=== PATIENT | male | born 1945 | race Caucasian/White ===

== ENCOUNTER → 2017-06-15 | Outpatient (CLI) | payer MEDICARE ==
--- NOTE | 2017-06-15 14:21 | XR ---
EXAMINATION TYPE: XR chest 2V DATE OF EXAM: 06/15/2017 COMPARISON: NONE HISTORY: Congestive heart failure, COPD TECHNIQUE: Frontal and lateral views of the chest are obtained. FINDINGS: There is no focal air space opacity, pleural effusion, or pneumothorax seen. The cardiac silhouette size is possibly enlarged, patient is rotated. There are prominent lung volumes. Postop c hanges in the right shoulder. Flowing anterior osteophytes in the thoracic spine suggest diffuse hepa tic skeletal hyperostosis. Possible degenerative disc disease in the upper lumbar spine. Arthropathy noted in the left shoulder. The osseous structures are intact. IMPRESSION: No acute cardiopulmonary process.
== END | disposition home or self-care (01) ==
LOC: RADXRMAIN 09:38
PROVIDERS: ATTEND Internal Medicine Cardiovascular Disease
DX: I50.9 Heart failure, unspecified (principal)
CPT/HCPCS: 36415; 71046; 83880

== ENCOUNTER → 2017-11-04 | Outpatient (CLI) | payer MEDICARE ==
[2017-11-04 10:47] LABS: Blood Urea Nitrogen 19 mg/dL (9-20)
== END | disposition home or self-care (01) ==
LOC: LABWHC1 10:06
PROVIDERS: ATTEND Orthopaedic Surgery
DX: M25.512 Pain in left shoulder (principal); M19.012 Primary osteoarthritis, left shoulder; M50.10 Cervical disc disorder with radiculopathy, unspecified cervical region; M47.22 Other spondylosis with radiculopathy, cervical region
CPT/HCPCS: 36415; 82565; 84520

== ENCOUNTER → 2017-12-07 | Outpatient (CLI) | payer MEDICARE ==
[2017-12-07 13:09] LABS: HCT 37.9 % (39.0-53.0); HGB 12.6 gm/dL (13.0-17.5); MCH 31.2 pg (25.0-35.0); MCHC 33.3 g/dL (31.0-37.0); MCV 93.5 fL (80.0-100.0); Mean Platelet Volume 7.6; Platelet Count 175 k/uL (150-450); RBC 4.05 m/uL (4.30-5.90); RDW 13.7 % (11.5-15.5); WBC 4.8 k/uL (3.8-10.6)
[2017-12-07 14:10] LABS: ALT 55 U/L (21-72); AST 78 U/L (17-59); Albumin 3.6 g/dL (3.5-5.0); Alkaline Phosphatase 96 U/L (38-126); Anion Gap 9 mmol/L; Blood Urea Nitrogen 26 mg/dL (9-20); Calcium 9.2 mg/dL (8.4-10.2); Carbon Dioxide 29 mmol/L (22-30); Chloride 101 mmol/L (98-107); Glucose 104 mg/dL (74-99); Potassium 3.8 mmol/L (3.5-5.1); Sodium 139 mmol/L (137-145); Total Bilirubin 0.6 mg/dL (0.2-1.3); Total Protein 6.9 g/dL (6.3-8.2)
== END | disposition home or self-care (01) ==
LOC: LABWHC1 12:39
PROVIDERS: ATTEND Thoracic Surgery (Cardiothoracic Vascular Surgery)
DX: E63.8 Other specified nutritional deficiencies (principal)
CPT/HCPCS: 36415; 80053; 84134; 85027

== ENCOUNTER → 2017-12-15 | Outpatient (CLI) | payer MEDICARE | END | disposition home or self-care (01) | LOC: RADUSWWP 13:24 | PROVIDERS: ATTEND Thoracic Surgery (Cardiothoracic Vascular Surgery) | DX: M79.604 Pain in right leg (principal); M79.605 Pain in left leg | CPT/HCPCS: 93923 ==

== ENCOUNTER → 2017-12-17 | Outpatient (CLI) | payer MEDICARE ==
--- NOTE | 2017-12-17 15:11 | NM ---
EXAMINATION TYPE: NM bone 3 phase DATE OF EXAM: 12/17/2017 COMPARISON: Right toes 12/14/2017 HISTORY: Osteomyelitis Triple phase bone scintigraphy was performed following the injection of 26.0 mCi Tc 99m MDP. Immedia te images and 5.25 hours post injection images acquired. FINDINGS: Increased blood flow and blood pool activity to the right lower extremity as compared to the left. De layed imaging shows increased uptake at the level of the proximal third digit of the right foot. Midf oot shows activity bilaterally. IMPRESSION: Findings suggest osteomyelitis to the third digit right foot
== END | disposition home or self-care (01) ==
LOC: RADNMMAIN 07:14
PROVIDERS: ATTEND Thoracic Surgery (Cardiothoracic Vascular Surgery)
DX: E11.69 Type 2 diabetes mellitus with other specified complication (principal); M86.8X8 Other osteomyelitis, other site
CPT/HCPCS: 78315; A9503

== ENCOUNTER → 2018-01-12 | Outpatient (CLI) | payer MEDICARE ==
--- NOTE | 2018-01-12 23:49 | MR ---
EXAMINATION TYPE: MR foot RT wo/w con DATE OF EXAM: 01/12/2018 COMPARISON: None HISTORY: Pain in Right foot,L89.90 Pressure Ulcer, 2nd and 3rd toe CONTRAST: Standard multiplanar, multisequence MRI departmental protocol utilizing 12 mL intravenous Gadavist ga dolinium contrast. FINDINGS: There is diffuse edema of the foot. This is more noticeable in the forefoot. There is edema around the ankle joint. There is hallux valgus. The metatarsals appear intact. There is a small effu rachid at the first MP joint. There is hypertrophic spurring at the first MP joint. There is no evidenc e of an abscess. IMPRESSION: Diffuse subcutaneous edema. This extends into the toes. No focal bone destruction. Mild hallux valgus . No abscess seen.
== END | disposition home or self-care (01) ==
LOC: RADMRIMAIN 07:29
PROVIDERS: ATTEND Orthopaedic Surgery
DX: M20.11 Hallux valgus (acquired), right foot (principal); R60.0 Localized edema; G57.91 Unspecified mononeuropathy of right lower limb
CPT/HCPCS: 73720; A9581

== ENCOUNTER → 2018-01-21 | Outpatient (CLI) | payer MEDICARE ==
--- NOTE | 2018-01-22 22:41 | MR ---
EXAMINATION TYPE: MR cervical spine wo/w con DATE OF EXAM: 01/21/2018 COMPARISON: None HISTORY: Neck pain TECHNIQUE: Multiplanar, multisequence images of the cervical spine were acquired utilizing 12 mL intravenous Vinny avist gadolinium contrast. Diffusion weighted imaging was performed. C2-C3: Posterior extension of endplate disc complex contacts the anterior cervical cord and causes mo derate central canal stenosis. Lateral extension endplate disc complex results in foraminal encroachm ent greater on the left, there is associated facet arthropathy greater than right. C3-4: There is severe central canal stenosis due to posterior extension of endplate disc complex, lat eral extension endplate disc complex causes bilateral foraminal encroachment. There is deformity the cervical cord. C4-C5: Foraminal encroachment or central stenosis. No disc herniation there is obliteration of the di sc space due to diffusion. C5-C6: Posterior extension of endplate causes mild anterior mass effect on the thecal sac, obliterati on of the space, lateral extension of spurring does cause some foraminal encroachment bilaterally. C6-C7: Posterior extension of endplate disc complex causes anterior mass effect on the thecal sac, mi ld central canal stenosis. Lateral extension of endplate disc complex causes bilateral foraminal encr oachment. C7-T1: There is left-sided foraminal encroachment. No significant central stenosis. No disc herniatio n. There is multilevel spondylosis present with loss of disc height signal, anterior cervical fusion and discectomy present at C4-C6. Endplate discogenic marrow signal changes are noted. Epidural enhancem ent is present which is possibly postsurgical. IMPRESSION: Spinal stenosis greatest at C3-4, multilevel foraminal encroachment, degenerative disc disease.
== END | disposition home or self-care (01) ==
LOC: RADMRIMAIN 16:15
PROVIDERS: ATTEND Orthopaedic Surgery
DX: M48.02 Spinal stenosis, cervical region (principal); M50.10 Cervical disc disorder with radiculopathy, unspecified cervical region; E11.9 Type 2 diabetes mellitus without complications; M19.012 Primary osteoarthritis, left shoulder
CPT/HCPCS: 72156; A9581

== ENCOUNTER → 2018-03-01 | Outpatient (CLI) | payer MEDICARE ==
--- NOTE | 2018-03-01 13:43 | XR ---
EXAMINATION TYPE: XR chest 2V DATE OF EXAM: 03/01/2018 COMPARISON: Prior chest x-ray 06/15/2017 HISTORY: COPD, preop TECHNIQUE: Frontal and lateral views of the chest are obtained. FINDINGS: There is no focal air space opacity, pleural effusion, or pneumothorax seen. The cardiac silhouette size is stable. Anterior flowing osteophytes in the thoracic spine may be indicative of di ffuse idiopathic skeletal hyperostosis. There are prominent lung volumes. Postop change noted to the right shoulder. The osseous structures are intact. IMPRESSION: No acute cardiopulmonary process.
== END | disposition home or self-care (01) ==
LOC: RADXRMAIN 10:15
PROVIDERS: ATTEND Orthopaedic Surgery Orthopaedic Surgery of the Spine
DX: Z01.818 Encounter for other preprocedural examination (principal)
CPT/HCPCS: 71046

== ENCOUNTER 2018-03-09 07:30 | Inpatient (IN) | payer MEDICARE ==
[~2018-03-09 07:30] MED LIST: MORPHINE SULFATE 4 MG/ML SYRINGE IV PRN; ceFAZolin IN SWFI 2 GM/20 ML SYRINGE IVP ONE
[2018-03-09] MEDS ORDERED: LIDOCAINE 1% 20 ML VIAL (10MG/ML) FOR IV START INTRADERMA ONE (09:09)
[2018-03-09] MEDS: LACTATED RINGERS 1,000 ML IV SCH ×2 (09:09→19:54)
[2018-03-09] MEDS ORDERED: ONDANSETRON 4 MG/2 ML VIAL ONE (09:26)
[2018-03-09] MEDS ORDERED: ONDANSETRON 4 MG/2 ML VIAL IVP ONE (09:27)
[2018-03-09] MEDS ORDERED: PROPOFOL 10 MG/ML 20 ML VIAL IV ONE (11:14)
[2018-03-09] MEDS ORDERED: ePHEDrine SULFATE/0.9% NACL/PF 50 MG/5 ML SYRINGE IV ONE (11:14)
[2018-03-09] MEDS ORDERED: DEXAMETHASONE SOD PHOS (MDV) 100 MG/10 ML VIAL ONE (11:14)
[2018-03-09] MEDS ORDERED: NEOSTIGMINE 1 MG/ML 10 ML VIAL ONE (11:14)
[2018-03-09] MEDS ORDERED: ROCURONIUM BROMIDE 10 MG/ML 10 ML VIAL IV ONE (11:14)
[2018-03-09] MEDS ORDERED: MIDAZOLAM 2 MG/2 ML VIAL ONE (11:14)
[2018-03-09] MEDS ORDERED: GLYCOPYRROLATE 0.2 MG/ML 2 ML VIAL ONE (11:14)
[2018-03-09] MEDS ORDERED: GELATIN SPONGE,ABSORB (LARGE) 1 EACH SPONGE TOPICAL ONE (11:14)
[2018-03-09] MEDS ORDERED: THROMBIN (BOVINE) 5,000 UNIT VIAL TOPICAL ONE (11:14)
[2018-03-09] MEDS ORDERED: SUCCINYLCHOLINE CHLORIDE 100 MG/5 ML SYR IV ONE (11:14)
[2018-03-09] MEDS ORDERED: LIDOCAINE 0.5%-EPI 1:200,000 50 ML VIAL SQ ONE (11:14)
[2018-03-09] MEDS ORDERED: LIDOCAINE 1% INJ 10MG/ML (20 ML MDV) ONE (11:14)
[2018-03-09] MEDS ORDERED: LABETALOL 5 MG/ML VIAL MDV ONE (11:14)
[2018-03-09] MEDS ORDERED: fentaNYL (PF) 50 MCG/ML 2 ML AMP ONE (11:14)
[2018-03-09] MEDS ORDERED: BACITRACIN 50,000 UNIT, POLYMYXIN B 500,000 UNIT in SODIUM CHLORIDE 0.9% IRRIGATIO 1,00... IRRIGATION ONE (11:30)
[2018-03-09] MEDS ORDERED: LACTATED RINGERS 1,000 ML IV ONE (12:58)
[2018-03-09] MEDS ORDERED: MAGNESIUM HYDROXIDE 2,400 MG/10 ML CUP PO PRN (13:45)
[2018-03-09] MEDS ORDERED: HYDROmorphone 1 MG/ML 1 ML SYRINGE IVP PRN ×2 (13:45)
[2018-03-09] MEDS ORDERED: HYDROcodone/APAP 5-325MG 1 EACH TAB PO PRN (13:45)
[2018-03-09] MEDS ORDERED: BENZOCAINE/MENTHOL LOZENG 1 EACH LOZENGE MUCOUS MEM PRN (13:45)
[2018-03-09] MEDS ORDERED: ONDANSETRON 4 MG/2 ML VIAL IVP PRN (13:45)
[2018-03-09] MEDS ORDERED: ALBUTEROL NEBULIZED 2.5 MG/3 ML INHALATION PRN (13:46)
[2018-03-09] MEDS ORDERED: ACETAMINOPHEN TAB 325 MG TAB PO PRN (13:46)
--- NOTE | 2018-03-09 13:55 | XR ---
EXAMINATION TYPE: XR cervical spine limited DATE OF EXAM: 03/09/2018 COMPARISON: NONE HISTORY: Surgical procedure TECHNIQUE: 2 intraoperative view submitted FINDINGS: There is postsurgical change at C3-C4. Alignment near-anatomic. Resolution reduced by intra operative image. IMPRESSION: Limited intraoperative surgical image.
--- NOTE | 2018-03-09 14:01 | P.OP ---
Date of Procedure: 03/09/18 Preoperative Diagnosis: Cervical myelopathy, severe cervical stenosis C3 4, degenerative disc disease C3 4 and C6 7, history of prior anterior cervical discectomy and fusion with retained hardware C4 5 C5 6, upper extremity weakness Postoperative Diagnosis: Same with findings of solid autofusion at C6 7 and solid fusion C4 5 C5 6 Anesthesia: GETA Pathology: none sent Condition: stable Disposition: PACU Description of Procedure: BRIEF OPERATIVE NOTE Preoperative Diagnosis: Cervical myelopathy, severe cervical stenosis C3 4, degenerative disc disease C3 4 and C6 7, history of prior anterior cervical discectomy and fusion with retained hardware C4 5 C5 6, upper extremity weakness Postoperative Diagnosis: Same with findings of solid anterior cervical fusion at C4 5 C5 6 and findings of solid autofusion at C6 7 with mature bridging osteophyte bone formation Procedure: Removal of hardware C4 5 C5 6 Exploration of fusion C4 5 C5 6 with findings of solid fusion Exploration of C6 7 with findings of autofusion and mature anterior bridging osteophyte formation Anterior cervical decompression with discectomy and fusion C3 4 Placement of interbody graft At C3 4 Application of anterior cervical plate at C3 4 Surgeon: Dr. Jack Vacuum Conditioner Operator: Piero Noriega is present throughout the entire the case persistence during positioning, dissection, exposure, visualization, and all crucial elements of the case as well as closure. Anesthesia: General anesthesia Estimated blood loss: approximately 50 mL Complications: None apparent Components implanted: K2M Boss anterior cervical plate system with screws and Vikos interbody allograft bone graft with DBX bone putty Disposition: To recovery room in good stable condition. OPERATIVE INDICATIONS The patient has had long-standing issues in their neck and upper extremities. he is having worsening of his symptoms and evidence of myelopathy at his upper and lower extremities. His found have severe cervical stenosis C3 4 which correlated with his early myelopathy symptoms. He had a history of prior anterior cervical discectomy and fusion approximately 13 years ago at C4 5 and C5 6 which had gone on to do well over the past several years however developed worsening symptoms which was felt to stem primarily from the C3 4 severe stenosis but also potentially from the disc degeneration and disc bulging at C6 7. The patient has been through conservative treatment. he was having worsening symptoms and evidence of myelopathy despite conservative management. We discussed various treatment options including surgery, and the patient wishes to proceed with surgery We discussed the risk, patient's alternatives and benefits of surgery including but not limited to, risk of bleeding risk of infection, risk of need for further surgery, risk of decreased, loss of motion, muscle function, malunion nonunion, hardware failure, nerve damage, paralysis, heart attack, and . OPERATIVE SUMMARY After discussing all the risks, patient alternatives and benefits at length, the patient elected to proceed with surgical intervention, signed informed consent, and presented for their procedure. The patient was seen and examined in the preoperative holding area and the surgical site was marked. The patient was given antibiotics and brought to the operating room. The patient was positioned on the operating room table in a supine position being careful to pad any bony prominences and pressure points. The patient was sedated and intubated by anesthesia in standard fashion. Once the airway and C- spine were stabilized the patient's arms were padded and tucked at her side, with her shoulders gently taped. The head was placed in a donut pad with the neck in good neutral alignment and position. We were careful to maintain the patient's cervical spine and good neutral alignment and position throughout. The patient was prepped and draped in a normal standard fashion. An appropriate timeout and keystone protocol performed. We were able to proceed with the surgery. The local wound area was infiltrated with local anesthetic. An incision was mlongitudinally approximately 4 cm on the left side over the appropriate levels from C3 to C7, as the patient has had prior transverse incision on the right side for his prior surgery . Dissection was taken down subcutaneously to the level of the platysma which was split in line with its fibers. Dissection was taken with a carotid approach, with the trachea and esophagus medial and the carotid sheath laterally. We dissected down to the anterior surface of the vertebral bodies. I was able to easily palpate and find the anterior cervical plate at C4 to 6 and expose the appropriate hardware. The construct appeared to be stable. There is some bony overgrowth at both see 34 and at C6 7. There is very large mature osteophyte at C6 7. I was able expose the screw heads at the plate. I used the appropriate screwdriver to unlock the locking device and then remove the screws 6 appropriately. Screws were evaluated found to be in total. The plate was mobilized and removed and found to be in total. The area was explored and there was excellent interbody fusion at C45 and C5 6 for findings of solid fusion C5 6. I'll further explored the level at C6 7. There is no evidence of motion at C6 7. There is a large mature osteophyte anteriorly at C6 7 with no evidence of any motion or disruption. It appeared to bridge Mendez at C6 7 and I felt that the level was solidly fused. I further reviewed the MRI as a had prior to surgery and I felt that the patient will be well served with repeating the autofusion intact at C6 7 rather than taking down the autofusion and opening up the space further where there was disc bulging. I felt that his symptoms worsen primarily from the 34 level and I did not pursue further decompression at C6 7 at the time of the surgery. Intraoperative x-ray was taken which showed a marker at the appropriate level above the plate at C3 4 . With the appropriate level positively confirmed with C-arm after taking the plate, we were able to proceed with discectomy at the appropriate levels of C3 4 . All of the operative levels were exposed appropriately. The patient had all their twitches back, and there was no evidence of recurrent laryngeal issue. The wound was copiously irrigated and suctioned dry as had been done periodically throughout the case. At the appropriate level/levels, I established an annulotomy with an 11 blade scalpel. there was severe disc degeneration and complete disc height loss. A discectomy was performed with a combination of pituitary rongeurs, curettes, a high-speed bur, and Kerrison rongeurs. The posterior longitudinal ligament was taken down as were any posterior osteophytes. there was severe posterior osteophytes and severe central and bilateral foraminal stenosis. The decompression was able to remedy this quite well central and bilateral neural foramen. This gave good central and bilateral foraminal decompression. There is no evidence of any dural tear or leak. The endplates were prepared with a high-speed bur. With the endplates in good parallel position, I was able to size for the appropriate size interbody graft. The wound was irrigated and suctioned dry the graft was prepared and malleted into position. It had good alignment and position with the anterior surface flush with the anterior surface of the vertebral bodies. with the autofusion at C6 7 I felt that was appropriate to leave the autofusion intact rather to then to take down the autofusion to dress the bulging at the C6 7 disc. With the graft intact, I was able to measure and contour and appropriate sized plate for C3 4 . The plate was positioned at the midline over the appropriate levels for C3 4 . Screw holes were established with a hand drill and drill guide. Screws were placed in good alignment and position with excellent bony purchase. eye had to place the plate slightly left of midline to accommodate and avoid the prior screw holes. It was well positioned with excellent purchase at the vertebral bodies They were seated under the locking device. The construct was checked and found to be stable. Intraoperative x-ray was taken which showed good alignment and position of the implants at the appropriate levels. There was no evidence of any dural tear or leak. Good hemostasis was maintained. The wound was copiously irrigated and suctioned dry as had been done periodically throughout the case. The platysma was closed with absorbable suture. The subcutaneous tissue was closed. The subcuticular tissue was closed with absorbable suture. The wound was cleaned and dried and dressed appropriately. A soft cervical collar was placed appropriately. The patient was woken up by anesthesia, extubated, transferred back gently to their hospital bed and brought to the recovery room in good stable condition. The patient will be admitted to the hospital for appropriate postoperative care , medical management and monitoring. We will continue to follow them closely about the postoperative course.
--- NOTE | 2018-03-09 14:12 | FL ---
EXAMINATION TYPE: FL guidance operating room DATE OF EXAM: 03/09/2018 HISTORY: Flouroscopy time 10 seconds of fluoroscopy provided. IMPRESSION: 1. Fluoroscopy time.
[2018-03-09] MEDS ORDERED: METOPROLOL TARTRATE 5 MG/5 ML VIAL IVP ONE (14:30)
[2018-03-09] MEDS: IPRATROPIUM-ALBUTEROL 3 ML NEB INHALATION SCH ×2 (15:15→18:37)
[2018-03-09 15:32] VITALS: BMI 32.0
[2018-03-09] MEDS ORDERED: LORazepam 2 MG/ML INJ IV PRN ×3 (19:39)
[2018-03-09] MEDS: SODIUM CHLORIDE 0.9% 1,000 ML IV SCH (19:54)
[2018-03-09] MEDS: APIXABAN 5 MG TAB PO SCH (19:55)
[2018-03-09] MEDS: ceFAZolin IN SWFI 2 GM/20 ML SYRINGE IVP SCH (19:55)
[2018-03-09] MEDS ORDERED: MECLIZINE 25 MG TAB PO STA (19:55)
[2018-03-09] MEDS ORDERED: PANTOPRAZOLE 40 MG TABLET PO STA (19:55)
[2018-03-09] MEDS ORDERED: QUEtiapine 50 MG TAB PO SCH (21:00)
[2018-03-09] MEDS ORDERED: NON-FORMULARY DRUG (Fish Oil/Dha/Epa [Fish Oil 1,200 Mg Fish Oil] 1 EACH) PO SCH (21:00)
[2018-03-09] MEDS ORDERED: ATORVASTATIN 20 MG TAB PO SCH (21:00)
[2018-03-09 23:00] VITALS: RESP 18
[2018-03-10] MEDS ORDERED: METOPROLOL TARTRATE 25 MG TAB PO STA
[2018-03-10] MEDS ORDERED: DILTIAZEM DRIP BOLUS FROM BAG 1 MG SOLN IV ONE (00:39)
[2018-03-10 00:47] LABS: Creatine Kinase 70 U/L (55-170)
[2018-03-10 01:00] LABS: Creatine Kinase MB 1.8 ng/mL (0.0-2.4); Troponin I <0.012 ng/mL (0.000-0.034)
[2018-03-10] MEDS: DILTIAZEM 50 MG in SODIUM CHLORIDE 0.9% 40 ML IV SCH ×2 (01:25→09:23)
[2018-03-10] MEDS: ceFAZolin IN SWFI 2 GM/20 ML SYRINGE IVP SCH (02:16)
[2018-03-10 07:15] LABS: Creatine Kinase 65 U/L (55-170)
[2018-03-10 07:26] LABS: Creatine Kinase MB 1.8 ng/mL (0.0-2.4); Troponin I <0.012 ng/mL (0.000-0.034)
--- NOTE | 2018-03-10 07:29 | P.CONS ---
History of Present Illness - Reason for Consult Consult date: 03/10/18 Requesting physician: Matt Jack - Chief Complaint Cervical myelopathy - History of Present Illness This is a 72-year-old white male who was essentially admitted for cervical myelopathy and repair. The patient has an underlying history of atrial fibrillation. I was called yesterday evening after postoperative increased heart rate. EKG showed atrial flutter with ST elevation. The patient was then transferred to [facility] and now is seen at that point. The patient's fairly asymptomatic but there is some concern because of history of ethanol use. He claims about 16 drinks per week. No history of delirium tremens stated. No significant nausea or vomiting. No fever or chills are stated. Blood pressure has been stable. Cardiology has been appropriately consulted. Review of Systems Constitutional: Denies chills, Denies fever Eyes: denies blurred vision, denies pain Ears, nose, mouth and throat: Denies headache, Denies sore throat Cardiovascular: Denies chest pain, Denies shortness of breath Respiratory: Denies cough Musculoskeletal: Denies myalgias Neurological: Denies numbness, Denies weakness Past Medical History Past Medical History: Atrial Fibrillation, Cancer, Heart Failure, COPD, Deep Vein Thrombosis (DVT), GERD/Reflux, Hyperlipidemia, Hypertension Additional Past Medical History / Comment(s): prostate cancer,rt.ft. wound, neuropathy to feet History of Any Multi-Drug Resistant Organisms: None Reported Year Discovered:: 12/14/17 MDRO Source:: TOE Past Surgical History: Hernia Repair, Joint Replacement, Prostate Surgery Additional Past Surgical History / Comment(s): neck surgery, RT HAND PLATE SURGERY, BILATERAL KNEE SURGERY, RT SHOULDER SURGERY Past Anesthesia/Blood Transfusion Reactions: No Reported Reaction Smoking Status: Former smoker - Past Family History Mother Family Medical History: Blood Disorder Father Family Medical History: Dementia Medications and Allergies Home Medications Medication Instructions Recorded Confirmed Type Albuterol Inhaler [Ventolin Hfa 1 - 2 puff INHALATION RT-Q6H PRN 09/27/17 History Inhaler] Bisoprolol Fumarate [Zebeta] 10 mg PO DAILY 09/27/17 03/09/18 History Cholecalciferol [Vitamin D3] 1,000 units PO DAILY 09/27/17 03/09/18 History Fish Oil/Dha/Epa [Fish Oil 1,200 1 cap PO BID 09/27/17 03/09/18 History mg Fish Oil] Furosemide [Lasix] 40 mg PO DAILY 09/27/17 03/09/18 History Ipratropium/Albuterol Sulfate 2 puff INHALATION RT-QID 09/27/17 03/09/18 History [Combivent Respimat Inhaler] LORazepam [Ativan] 0.5 mg PO BID PRN 09/27/17 03/09/18 History Multivitamin [Men's Multi-Vitamin] 1 tab PO DAILY 09/27/17 03/09/18 History Omeprazole [PriLOSEC] 20 mg PO AC-BRKFST 09/27/17 03/09/18 History Potassium Chloride [K-Tab ER] 10 meq PO DAILY 09/27/17 03/09/18 History QUEtiapine [SEROquel] 50 mg PO HS 09/27/17 03/09/18 History RX: Meclizine HCl 25 mg PO DAILY PRN 09/27/17 03/09/18 History RX: Meloxicam 15 mg PO DAILY 09/27/17 03/09/18 History RX: Vitamin B Complex 1 cap PO DAILY 09/27/17 03/09/18 History Sertraline [Zoloft] 200 mg PO DAILY 09/27/17 03/09/18 History Simvastatin [Zocor] 40 mg PO HS 09/27/17 03/09/18 History Acetaminophen [Tylenol Arthritis] 650 mg PO DIRECTED PRN 12/07/17 03/09/18 History Apixaban [Eliquis] 5 mg PO BID 12/07/17 03/09/18 History Aspirin EC [Ecotrin Low Dose] 81 mg PO DAILY 12/07/17 03/09/18 History Hydrochlorothiazide [Hydrodiuril] 25 mg PO DAILY 12/07/17 03/09/18 History Allergies Allergy/AdvReac Type Severity Reaction Status Date / Time No Known Allergies Allergy Verified 03/09/18 15:59 Physical Exam Vitals: Vital Signs Temp Pulse Pulse Resp BP Pulse Ox 03/10/18 04:00 72 03/10/18 03:09 65 03/10/18 02:00 90 18 131/78 96 03/10/18 01:45 100 124/67 96 03/10/18 01:36 86 120/75 03/10/18 01:00 97.0 F L 102 H 18 132/78 96 03/09/18 23:30 126 H 03/09/18 23:13 97.8 F 126/90 03/09/18 22:58 125 H 18 95 03/09/18 22:20 110 H 95 03/09/18 19:20 99.2 F 105 H 14 142/94 97 03/09/18 18:49 90 16 03/09/18 18:37 91 16 03/09/18 16:45 100 144/90 92 L 03/09/18 16:30 92 158/108 92 L 03/09/18 16:15 86 149/92 93 L 03/09/18 16:00 100 154/94 92 L 03/09/18 15:45 101 H 146/93 90 L 03/09/18 15:30 97 144/100 91 L 03/09/18 15:25 89 16 03/09/18 15:24 98.2 F 94 16 149/88 91 L 03/09/18 15:16 94 16 03/09/18 15:15 87 156/108 95 03/09/18 15:00 98.2 F 94 149/88 91 L 03/09/18 14:47 64 16 143/80 94 L 03/09/18 14:32 75 16 167/90 94 L 03/09/18 14:17 68 16 169/79 95 03/09/18 14:02 98 F 96 16 170/80 94 L 03/09/18 08:28 98.6 F 80 18 140/74 93 L Intake and Output 03/09/18 03/10/18 03/10/18 22:59 06:59 14:59 Intake Total 800 658.583 Output Total 300 900 Balance 500 -241.417 Intake: Intake, IV Titration 600 658.583 Amount Diltiazem 50 mg In Sodium 8.583 Chloride 0.9% 40 ml @ 10 MG/HR 10 mls/hr IV .Q5H NIHARIKA Rx#:[id number] Sodium Chloride 0.9% 1, 600 650 000 ml @ 75 mls/hr IV . [id number] NIHARIKA Rx#:[id number] Oral 200 Output: Urine 300 900 Other: # Voids 1 2 Weight 116.12 kg 116.8 kg - Constitutional General appearance: no acute distress - EENT Eyes: EOMI - Neck Neck: no lymphadenopathy - Respiratory Respiratory: bilateral: CTA - Cardiovascular Rhythm: regular Heart sounds: normal: S1, S2 Abnormal Heart Sounds: no S3 Gallop - Gastrointestinal General gastrointestinal: soft, no tenderness - Neurologic Slight hand tremor noted. Neurologic: CNII-XII intact - Musculoskeletal Musculoskeletal: strength equal bilaterally - Psychiatric Psychiatric: A&O x's 3, appropriate affect, intact judgment & insight Assessment and Plan (1) Cervical myelopathy Current Visit: Yes Status: Acute Code(s): G95.9 - DISEASE OF SPINAL CORD, UNSPECIFIED SNOMED Code(s): 052500611 (2) Atrial fibrillation Current Visit: Yes Status: Acute Code(s): I48.91 - UNSPECIFIED ATRIAL FIBRILLATION SNOMED Code(s): 00081502 Plan: Enzymatic elevation is not seen. Obviously, rule out myocardial infraction. Reconcile home medications as necessary. The patient has been placed on diltiazem per cardiology. The patient seems stable at this time. Continue CIWA. We appreciate consultation will follow throughout the hospitalization as needed. Time with Patient: Greater than 30
[2018-03-10] MEDS ORDERED: PANTOPRAZOLE 40 MG TABLET PO SCH (07:30)
[2018-03-10] MEDS: IPRATROPIUM-ALBUTEROL 3 ML NEB INHALATION SCH ×2 (08:13→11:49)
[2018-03-10 08:53] LABS: HGB 14.4 gm/dL (13.0-17.5); Hypochromasia Slight; MCH 30.2 pg (25.0-35.0); MCV 94.4 fL (80.0-100.0); Mean Platelet Volume 8.1; Platelet Count 192 k/uL (150-450); RBC 4.76 m/uL (4.30-5.90); RDW 14.2 % (11.5-15.5); WBC 6.6 k/uL (3.8-10.6)
--- NOTE | 2018-03-10 08:56 | P.DS ---
Providers Date of admission: 03/09/18 08:03 Attending physician: Matt Jack Consults: 03/09/18 23:16 Consult Physician Urgent Consulting Provider: Khai Jenkins Reason/Comments: Increased Heart Rate/CIWAH scale/Medical Management Do you want consulting provider notified?: Already Contacted 03/09/18 23:48 Consult Physician Stat Consulting Provider: Ana Santoro Consult Reason/Comments: abnormal ecg Do you want consulting provider notified?: Yes Primary care physician: Khai Jenkins Hospital Course: The patient presented on the day of admission as per his operative note. He has cervical myelopathy and severe stenosis at C3 4 with history of spinal fusion C4 5 C5 6 with retained hardware. He also disc degeneration and disc bulging C6 7. He underwent his anterior cervical decompression with discectomy and fusion C3 4 with removal of his hardware at C4 5 and C5 6 yesterday. He feels his arms not gone since his surgery as it had been doing prior to surgery. Yesterday he felt that he was getting somewhat anxious and was having some increased blood pressure and was transferred to [address] [place] [address] further observation as per medicine. He denies any chest pain or shortness of breath. Physical Exam The incision site is clean dry and intact. There is no erythema no drainage. There is no purulence no evidence of infection. his neck is soft and supple Abdomen soft and nontender. Chest has good excursion with deep inspiration and expiration. The patient has active and passive range of motion intact at the upper and lower extremities. There is no acute change in neurologic status. he has some generalized weakness at his upper extremities worse on the left than the right but is not having worsening from his surgery. Hospital Course Postoperative day #1 status was anterior cervical decompression with discectomy and fusion at C34 with removal of hardware C4 5 C5 6 for his severe cervical stenosis with cervical myelopathy Acute atrial fibrillation without evidence of cardiac event The patient's troponin enzymes have been negative and he is not having any cardiac issues and his vital signs remained stable. He does not appear to be in any acute coronary incident and will be okay for him to be monitored outpatient if it is okay with medicine. In terms of his cervical spine surgery he feels that he is doing well. They have completed the prophylactic antibiotics without any signs or symptoms of infection. The patient has been able to advance their diet, and is tolerating diet adequately. The pain was initially controlled with IV medications and is now controlled appropriately with oral medications. The patient has been able to increase their mobilization. The patient has progressed appropriately. I think they are in good stable condition for discharge today from an orthopedic spine standpoint . They will be sent home with appropriate prescriptions. I answered their questions to the best of my ability in a language that they can understand and they are agreeable with the plan. the patient states that he has pain medications at home that he can use. They will follow up as directed in approximately 1-2 weeks or sooner if he is having any problems. Patient Condition at Discharge: Good Plan - Discharge Summary Discharge Rx Participant: Yes New Discharge Prescriptions: No Action Simvastatin [Zocor] 40 mg PO HS QUEtiapine [SEROquel] 50 mg PO HS Albuterol Inhaler [Ventolin Hfa Inhaler] 1 - 2 puff INHALATION RT-Q6H PRN PRN Reason: Shortness Of Breath Sertraline [Zoloft] 200 mg PO DAILY Ipratropium/Albuterol Sulfate [Combivent Respimat Inhaler] 2 puff INHALATION RT-QID Omeprazole [PriLOSEC] 20 mg PO AC-BRKFST Furosemide [Lasix] 40 mg PO DAILY LORazepam [Ativan] 0.5 mg PO BID PRN PRN Reason: Anxiety Vitamin B Complex 1 cap PO DAILY Potassium Chloride [K-Tab ER] 10 meq PO DAILY Multivitamin [Men's Multi-Vitamin] 1 tab PO DAILY Meloxicam 15 mg PO DAILY Meclizine HCl 25 mg PO DAILY PRN PRN Reason: Vertigo Fish Oil/Dha/Epa [Fish Oil 1,200 mg Fish Oil] 1 cap PO BID Cholecalciferol [Vitamin D3] 1,000 units PO DAILY Bisoprolol Fumarate [Zebeta] 10 mg PO DAILY Acetaminophen [Tylenol Arthritis] 650 mg PO DIRECTED PRN PRN Reason: Pain Control Hydrochlorothiazide [Hydrodiuril] 25 mg PO DAILY Aspirin EC [Ecotrin Low Dose] 81 mg PO DAILY Apixaban [Eliquis] 5 mg PO BID Discharge Medication List Albuterol Inhaler [Ventolin Hfa Inhaler] 1 - 2 puff INHALATION RT-Q6H PRN [History] Bisoprolol Fumarate [Zebeta] 10 mg PO DAILY 09/27/17 [History] Cholecalciferol [Vitamin D3] 1,000 units PO DAILY 09/27/17 [History] Fish Oil/Dha/Epa [Fish Oil 1,200 mg Fish Oil] 1 cap PO BID 09/27/17 [History] Furosemide [Lasix] 40 mg PO DAILY 09/27/17 [History] Ipratropium/Albuterol Sulfate [Combivent Respimat Inhaler] 2 puff INHALATION RT- QID 09/27/17 [History] LORazepam [Ativan] 0.5 mg PO BID PRN 09/27/17 [History] Meclizine HCl 25 mg PO DAILY PRN 09/27/17 [History] Meloxicam 15 mg PO DAILY 09/27/17 [History] Multivitamin [Men's Multi-Vitamin] 1 tab PO DAILY 09/27/17 [History] Omeprazole [PriLOSEC] 20 mg PO AC-BRKFST 09/27/17 [History] Potassium Chloride [K-Tab ER] 10 meq PO DAILY 09/27/17 [History] QUEtiapine [SEROquel] 50 mg PO HS 09/27/17 [History] Sertraline [Zoloft] 200 mg PO DAILY 09/27/17 [History] Simvastatin [Zocor] 40 mg PO HS 09/27/17 [History] Vitamin B Complex 1 cap PO DAILY 09/27/17 [History] Acetaminophen [Tylenol Arthritis] 650 mg PO DIRECTED PRN 12/07/17 [History] Apixaban [Eliquis] 5 mg PO BID 12/07/17 [History] Aspirin EC [Ecotrin Low Dose] 81 mg PO DAILY 12/07/17 [History] Hydrochlorothiazide [Hydrodiuril] 25 mg PO DAILY 12/07/17 [History] Follow up Appointment(s)/Referral(s): Matt Jack DO [Doctor of Osteopathic Medicine] - 2 Weeks (construction secretary or nurse to please call office to arrange for appointment) Activity/Diet/Wound Care/Special Instructions: Patient's home medications were taken to inpatient pharmacy. Patient has home pain medications already at home to be taken as needed for his pain as directed. Avoid any rigorous activity. Avoid heavy activity. No overhead activity. May wear soft collar for comfort. May ambulate to tolerance. No repetitive bending twisting or lifting. Keep wound site clean. May shower with waterproof Tegaderm intact. On Wednesday, the patient may shower with area uncovered, but leave Steri-Strips intact and allow them to fray off on their own. Do not soak in a tub. Discharge Disposition: HOME SELF-CARE
[2018-03-10 08:57] LABS: ALT 27 U/L (21-72); AST 26 U/L (17-59); Albumin 3.7 g/dL (3.5-5.0); Alkaline Phosphatase 67 U/L (38-126); Anion Gap 7 mmol/L; Blood Urea Nitrogen 20 mg/dL (9-20); Carbon Dioxide 30 mmol/L (22-30); Chloride 102 mmol/L (98-107); Glucose 123 mg/dL (74-99); Sodium 139 mmol/L (137-145); Total Bilirubin 0.8 mg/dL (0.2-1.3); Total Protein 7.3 g/dL (6.3-8.2)
[2018-03-10] MEDS ORDERED: FUROSEMIDE 40 MG TAB PO SCH (09:00)
[2018-03-10] MEDS ORDERED: ASPIRIN 81 MG PO SCH (09:00)
[2018-03-10] MEDS ORDERED: NON-FORMULARY DRUG (Vitamin B Complex [Vitamin B Complex] 1 EACH) PO SCH (09:00)
[2018-03-10] MEDS ORDERED: MECLIZINE 25 MG TAB PO SCH (09:00)
[2018-03-10] MEDS ORDERED: BISOPROLOL 5 MG TAB PO SCH (09:00)
[2018-03-10] MEDS ORDERED: POTASSIUM CHLORIDE ER 10 MEQ TAB.ER.PRT PO SCH (09:00)
[2018-03-10] MEDS ORDERED: HYDROCHLOROTHIAZIDE 25 MG TAB PO SCH (09:00)
[2018-03-10] MEDS ORDERED: SERTRALINE 100 MG TAB PO SCH (09:00)
[2018-03-10] MEDS ORDERED: CHOLECALCIFEROL 1,000 UNIT TAB PO SCH (09:00)
[2018-03-10] MEDS: SODIUM CHLORIDE 0.9% 1,000 ML IV SCH (09:22)
[2018-03-10] MEDS: APIXABAN 5 MG TAB PO SCH (09:29)
--- NOTE | 2018-03-10 10:02 | CONS ---
CONSULTATION CHIEF COMPLAINT: Atrial fibrillation. Mr. Manzanares is a 72-year-old gentleman with history of paroxysmal atrial fibrillation, hypertension and dyslipidemia who was admitted to the hospital for cervical spine surgery and in the perioperative setting went into atrial flutter with poorly controlled ventricular rate. He was in atrial fibrillation with controlled ventricular rate in the office. At the time of my evaluation this morning, he is free of any cardiac symptoms. Remains in A. fib with poorly controlled ventricular rate. He had an echocardiogram and I was told that the LV systolic function is normal. The patient denies chest pain, difficulty in breathing, palpitations, dizziness, syncope or focal neurological deficits. PAST MEDICAL HISTORY: Past medical history is significant for dyslipidemia, atrial fibrillation, hypertension. CURRENT MEDICATIONS: Current medications include Zocor, Zoloft, Seroquel, K-Dur, Prilosec, meclizine, Combivent, HydroDIURIL, Lasix, bisoprolol, aspirin, Eliquis, Ventolin. ALLERGIES: No known drug allergies. FAMILY HISTORY: Family history is negative for premature coronary artery disease. SOCIAL HISTORY: He denies current smoking. Has a history of ETOH abuse. There is no history of drug abuse. PHYSICAL EXAMINATION: On exam, patient is comfortable at rest. Vital signs are stable. There is no jugular venous distention. Heart rate is elevated. Chest exam reveals good air entry bilaterally. Heart exam reveals first and second heart sounds, irregular rhythm. No murmur. Abdomen is soft, nontender. Examination of the extremities did not reveal any edema. Peripheral pulses are felt. EKGs have been reviewed. Labs show a hemoglobin of 14.4. Creatinine is 0.6. Two sets of troponins are negative. ASSESSMENT: 1. Atrial fibrillation with poorly controlled ventricular rate. The patient has chronic atrial fibrillation. He is on an anticoagulant. Heart rate is poorly controlled. I am going to resume the bisoprolol that the patient was on at home. 2. Status post cervical spine surgery. PLAN: Once the heart rate is controlled, he can be discharged home and outpatient followup arranged with Dr. Santoro, his primary timekeeper. MMODL / IJN: [id number] /
[2018-03-10 11:25] VITALS: TEMP 98.7
[2018-03-10] MEDS ORDERED: MULTIVITAMINS, THERA 1 EACH TAB PO SCH (12:00)
[2018-03-10] MEDS ORDERED: DILTIAZEM ORAL 30 MG TAB PO SCH (12:15)
[2018-03-10 13:01] LABS: Creatine Kinase 71 U/L (55-170)
[2018-03-10 13:14] LABS: Creatine Kinase MB 1.8 ng/mL (0.0-2.4); Troponin I <0.012 ng/mL (0.000-0.034)
[2018-03-10 15:57] VITALS: BP 126/79; PULSE 106
--- NOTE | 2018-03-10 17:39 | ECHOF ---
Referral Reason:abnormal ECG MEASUREMENTS -------- HEIGHT: 185.4 cm WEIGHT: 116.6 kg BP: 131/78 RVIDd: 3.6 cm (< 3.3) IVSd: 1.6 cm (0.6 - 1.1) LVIDd: 3.6 cm (3.9 - 5.3) LVPWd: 1.8 cm (0.6 - 1.1) IVSs: 2.1 cm LVIDs: 2.0 cm LVPWs: 1.6 cm Ao Diam: 3.9 cm (2.0 - 3.7) AV Cusp: 1.6 cm (1.5 - 2.6) LA Diam: 3.2 cm (2.7 - 3.8) RAP: 5.00 mmHg RVSP: 12.42 mmHg FINDINGS -------- Atrial fibrillation. This was a technically difficult study with suboptimal views. The left ventricular size is normal. There is severe concentric left ventricular hypertrophy. Ove rall left ventricular systolic function is low-normal with, an EF between 50 - 55 %. The right ventricle is mild to moderately enlarged. The left atrium is normal in size. The right atrium is normal in size. Lumason used Aortic valve is trileaflet and is mildly thickened. The mitral valve leaflets are mildly thickened. Mild mitral regurgitation is present. Mild tricuspid regurgitation present. The right ventricular systolic pressure, as measured by Doppl er, is 12.42mmHg. Pulmonic valve appears structurally normal. The aortic root is dilated measuring 3.9. The pericardium is normal. CONCLUSIONS -------- 1. Atrial fibrillation. 2. This was a technically difficult study with suboptimal views. 3. The left ventricular size is normal. 4. There is severe concentric left ventricular hypertrophy. 5. Overall left ventricular systolic function is low-normal with, an EF between 50 - 55 %. 6. The right ventricle is mild to moderately enlarged. 7. The left atrium is normal in size. 8. The right atrium is normal in size. 9. Lumason used 10. Aortic valve is trileaflet and is mildly thickened. 11. The mitral valve leaflets are mildly thickened. 12. Mild mitral regurgitation is present. 13. Mild tricuspid regurgitation present. 14. The right ventricular systolic pressure, as measured by Doppler, is 12.42mmHg. 15. Pulmonic valve appears structurally normal. 16. The aortic root is dilated measuring 3.9 17. The pericardium is normal. RACECAR DRIVER: Wendy Gee RDCS
== END 2018-03-10 15:43 | disposition home or self-care (01) | DRG 472 ==
LOC: 2ORMAIN 08:03 → 3SUR 14:02 → 6SEL 03-10 01:30
PROVIDERS: ADMIT Orthopaedic Surgery Orthopaedic Surgery of the Spine; ATTEND Orthopaedic Surgery Orthopaedic Surgery of the Spine
PROC: 0RG10A0 Fusion of Cervical Vertebral Joint with Interbody Fusion Device, Anterior Approach, Anterior Column, Open Approach (ICD-10-PCS; 2018-03-09)
PROC: 0RB30ZZ Excision of Cervical Vertebral Disc, Open Approach (ICD-10-PCS; 2018-03-09)
PROC: 0WP Anatomical Regions, General, Removal (ICD-10-PCS; principal; 2018-03-09 11:15)
DX: M48.02 Spinal stenosis, cervical region (principal); M50.021 Cervical disc disorder at C4-C5 level with myelopathy; Z18.89 Other specified retained foreign body fragments; E78.5 Hyperlipidemia, unspecified; I11.0 Hypertensive heart disease with heart failure; I48.0 Paroxysmal atrial fibrillation; I48.2 Chronic atrial fibrillation; I50.9 Heart failure, unspecified; J44.9 Chronic obstructive pulmonary disease, unspecified; K21.9 Gastro-esophageal reflux disease without esophagitis; M25.78 Osteophyte, vertebrae; Z79.01 Long term (current) use of anticoagulants; Z79.899 Other long term (current) drug therapy; Z85.46 Personal history of malignant neoplasm of prostate; Z87.891 Personal history of nicotine dependence; Z98.1 Arthrodesis status
CPT/HCPCS: 72020; 72040; 80053; 82550; 82553; 84484; 85027; 93005; 93306; 94640

== ENCOUNTER → 2018-09-24 | Outpatient (CLI) | payer OTHER ==
--- NOTE | 2018-09-24 13:35 | MR ---
EXAMINATION TYPE: MR brain and iac wo/w con DATE OF EXAM: 09/24/2018 COMPARISON: None HISTORY: Ataxia / Vertigo / Hearing loss TECHNIQUE: Multiplanar, multisequence images of the brain and brainstem with small [id number] and high resolu tion images through the internal auditory canals is performed without and with IV contrast, utilizing 13 mL intravenous Gadavist . FINDINGS: Diffusion weighted images demonstrate no evidence of a recent infarct or other diffusion ab normality. There is no extra-axial fluid collection. Increased signal on T2-weighted images within the luan, periventricular and deep white matter may be related to chronic small vessel ischemia. The ventricular system and cisternal spaces are normal in size and appearance. The brain volume is age a ppropriate. Midline structures demonstrate normal morphology. Internal auditory canals, cerebellopontine angles a re normal. Cortical atrophy is likely age-related. The craniocervical junction appears within normal limits. Post contrast images demonstrate no abnormal enhancement. The dural venous sinuses appear pa tent. The visualized sinuses are remarkable for mucoperiosteal thickening within the ethmoid air cell s, maxillary sinus, minimal inflammatory change mastoid air cells, and the globes are intact. IMPRESSION: No abnormality evident in the cerebellopontine angles. Age-related changes. Mild sinus di sease, mastoid inflammatory change.
== END | disposition home or self-care (01) ==
LOC: RADMRIMAIN 09:18
PROVIDERS: ATTEND Psychiatry & Neurology Neurology
DX: D33.3 Benign neoplasm of cranial nerves (principal); H74.8X9 Other specified disorders of middle ear and mastoid, unspecified ear; R27.0 Ataxia, unspecified
CPT/HCPCS: 70553; A9585

== ENCOUNTER → 2019-01-07 | Outpatient (CLI) | payer MEDICARE ==
--- NOTE | 2019-01-07 14:25 | MR ---
EXAMINATION TYPE: MR foot LT wo con DATE OF EXAM: 01/07/2019 COMPARISON: None HISTORY: pain osteomyelitis Standard multiplanar, multisequence MRI departmental protocol Multiplanar, multisequence images of the right foot were acquired. FINDINGS: Exam limited due to motion artifact. Assessment the musculature and tendinous structures extremely li mited. There is arthropathy with the joint space narrowing of all DIP, PIP and first MTP joint. Hypertrophic change involving the head of the first metatarsal. There is diffuse soft tissue edema overlying the dorsum of foot with skin thickening. There is no abnormal marrow alteration to suggest osteomyelitis. Chronic appearing signal seen along the lateral margin of the cuboid. There is be chronic deformity i nvolving the proximal phalanx first digit. IMPRESSION: 1. Limited exam due to artifact demonstrates diffuse soft tissue edema and skin thickening compatibl e with diffuse cellulitis. No diagnostic evidence of marrow edema to suggest osteomyelitis. 2. Arthropathy.
== END | disposition home or self-care (01) ==
LOC: RADMRIMAIN 12:35
PROVIDERS: ATTEND Orthopaedic Surgery
DX: M79.89 Other specified soft tissue disorders (principal); M19.072 Primary osteoarthritis, left ankle and foot; E11.69 Type 2 diabetes mellitus with other specified complication; M86.9 Osteomyelitis, unspecified; L97.509 Non-pressure chronic ulcer of other part of unspecified foot with unspecified severity

== ENCOUNTER 2019-02-02 08:29 | Day surgery (SDC) | payer MEDICARE ==
[~2019-02-02 08:29] MED LIST changes: -MORPHINE SULFATE 4 MG/ML SYRINGE IV PRN; +Pre Op ABX Message 1 EACH MISC MISCELLANE ONE; +ceFAZolin 3 GM in SODIUM CHLORIDE 0.9% 100 ML IVPB ONE; -ceFAZolin IN SWFI 2 GM/20 ML SYRINGE IVP ONE
[2019-02-02] MEDS ORDERED: DEXAMETHASONE SOD PHOSPHATE 10 MG/ML 1 ML VIAL IV ONE (08:40)
[2019-02-02] MEDS ORDERED: LIDOCAINE 1% 20 ML VIAL (10MG/ML) FOR IV START INTRADERMA PRN (08:40)
[2019-02-02] MEDS ORDERED: HYDROmorphone 0.5 MG/0.5 ML SYRINGE IVP PRN (08:40)
[2019-02-02] MEDS ORDERED: LACTATED RINGERS 1,000 ML IV SCH (08:40)
[2019-02-02] MEDS ORDERED: ONDANSETRON 4 MG/2 ML VIAL IVP ONE (08:40)
[2019-02-02 09:34] LABS: Glucose,Whole Blood 133 mg/dL (75-99)
[2019-02-02] MEDS ORDERED: fentaNYL (PF) 50 MCG/ML 2 ML AMP ONE (09:42)
[2019-02-02] MEDS ORDERED: LIDOCAINE 1% INJ 10MG/ML (20 ML MDV) ONE (09:42)
[2019-02-02] MEDS ORDERED: PROPOFOL 10 MG/ML 20 ML VIAL IV ONE (09:42)
[2019-02-02] MEDS ORDERED: MIDAZOLAM 2 MG/2 ML VIAL ONE (09:42)
[2019-02-02] MEDS ORDERED: SUCCINYLCHOLINE CHLORIDE 100 MG/5 ML SYR IV ONE (09:42)
[2019-02-02 10:48] VITALS: RESP 18; TEMP 97.1
[2019-02-02 12:13] VITALS: PULSE 80
[2019-02-02] MEDS ORDERED: HYDROcodone/APAP 5-325MG 1 EACH TAB PO ONE (12:40)
[2019-02-02 12:42] VITALS: BP 155/91
--- NOTE | 2019-02-02 14:21 | P.OP ---
Date of Procedure: 02/02/19 Preoperative Diagnosis: 1. Recurrent ulcer under the plantar aspect of the left hallux proximal phalanx 2. Prior Maged osteotomy left proximal phalanx, hallux 3. 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 Left EHL tendon tenotomy 2. Left first MTP capsulotomy 3. Left hallux proximal phalanx exostectomy Anesthesia: GETA Surgeon: Tani Camilo Estimated Blood Loss (ml): 10 IV fluids (ml): 750 Pathology: none sent Condition: stable Disposition: PACU Indications for Procedure: The patient is a 73-year-old male with multiple medical problems including type 2 diabetes and peripheral neuropathy who is had amputations and wound healing problems of both of his feet. He is a current patient of the wound Center. He was referred to my office in the past for which I performed an amputation on his right foot and he did well. He was again transferred for nonhealing wound on the plantar aspect of the left big toe. I met with the patient to discuss treatment. His x-rays showed a prior Maged osteotomy that had been performed by a grain weigher. He had an extension deformity of the big toe putting pressure on the callus under the plantar aspect of the left hallux. X-rays showed diffuse degenerative changes and a prior osteotomy the proximal phalanx. An MRI was obtained to show no evidence of osteomyelitis. We discussed continued nonsurgical treatment versus surgery. The patient was sent over for evaluation of a first MTP fusion, but due to the patient's very poor soft tissue envelope, diabetes, history of infection, history of amputation, and other medical comorbidities I did not think daily a good candidate for an elective fusion. My recommendation was to perform a release of the contracted soft tissues dorsally and remove any bone plantarly that may be leading to the area of prominence. We discussed potential risks and complications of this including but not limited to risk of infection, damage to blood vessels or nerves, recurrence, need for further surgery including amputation. The patient voiced his understanding of this and provided his consent to go forward with surgery. Description of Procedure: The patient was identified in preoperative holding and the correct left foot was marked with my initials. I reviewed the consent form with the patient and his daughter in their questions were answered. The patient was then brought back to the operating room by anesthesia. He was positioned on the OR table where a general anesthetic was given. The left leg was prepped and draped in the standard sterile fashion. A tourniquet was applied proximal aspect the left leg. The left leg was then elevated, exsanguinated with an Esmarch bandage, and the tourniquet was inflated to 250 mmHg. Prior to starting the procedure a timeout was performed identifying the correct patient, operative extremity, and procedure. A medial incision was made along the midline of the hallux centered between the glabrous skin and the dorsal skin. Skin incision was made with a scalpel dissection was carried down carefully. Tissue with tenotomy scissors. The EHL and EHB tendon were identified and found to be contracted. They were sharply released with a scalpel. This significantly improved the extension deformity at the MP joint. To allow additional correction a capsulotomy of the dorsal portion the joint was performed. This also decreased the deformity at the MTP joint. Dissection was then carried down plantarly. A small amount of bone was found to be prominent under the plantar aspect of the proximal phalanx which was removed with a curet and Luis Carlos. The wound was then thoroughly irrigated and closed in layers. A sterile dressing was applied. The patient was awoken from his anesthetic, transferred to a gurney, and brought to recovery having tolerated the procedure well. Plan: The patient is going to be discharged home as an outpatient. He can weight-bear as tolerated in the boot. Wound care can commence starting on postoperative day #2 with daily dressing changes. He will follow-up in 1 week for a wound check. He is currently on Eliquis and aspirin and has no further need for DVT prophylaxis
== END 2019-02-02 13:30 | disposition home or self-care (01) ==
LOC: OR 08:29
PROVIDERS: ATTEND Orthopaedic Surgery
DX: E11.621 Type 2 diabetes mellitus with foot ulcer (principal); L97.529 Non-pressure chronic ulcer of other part of left foot with unspecified severity; E11.42 Type 2 diabetes mellitus with diabetic polyneuropathy; Z89.421 Acquired absence of other right toe(s); F32.9 Major depressive disorder, single episode, unspecified; I11.0 Hypertensive heart disease with heart failure; I50.9 Heart failure, unspecified; E78.5 Hyperlipidemia, unspecified; K21.9 Gastro-esophageal reflux disease without esophagitis; R42 Dizziness and giddiness; M20.5X2 Other deformities of toe(s) (acquired), left foot; Z86.718 Personal history of other venous thrombosis and embolism; J44.9 Chronic obstructive pulmonary disease, unspecified; J30.2 Other seasonal allergic rhinitis; Z85.46 Personal history of malignant neoplasm of prostate; F43.10 Post-traumatic stress disorder, unspecified; R26.89 Other abnormalities of gait and mobility; I48.91 Unspecified atrial fibrillation; Z87.891 Personal history of nicotine dependence; K30 Functional dyspepsia; Z79.01 Long term (current) use of anticoagulants; Z79.1 Long term (current) use of non-steroidal anti-inflammatories (NSAID); Z79.82 Long term (current) use of aspirin; Z79.899 Other long term (current) drug therapy
CPT/HCPCS: 28270; J2250; J1100; J0690; J2405; J2001; J3010; J0330; J2704

== ENCOUNTER → 2019-05-30 | Outpatient (CLI) | payer OTHER | END | disposition home or self-care (01) | LOC: CPPFTMAIN 10:12 | DX: J98.4 Other disorders of lung (principal); J84.89 Other specified interstitial pulmonary diseases | CPT/HCPCS: 94060; 94726; 94729 ==

== ENCOUNTER 2019-06-22 06:07 | Day surgery (SDC) | payer MEDICARE, OTHER ==
[2019-06-20 10:52] VITALS: BMI 34.9
[~2019-06-22 06:07] MED LIST changes: +DEXAMETHASONE SOD PHOSPHATE 10 MG/ML 1 ML VIAL IV ONE; +HYDROmorphone 0.5 MG/0.5 ML SYRINGE IVP PRN; +LACTATED RINGERS 1,000 ML IV SCH; +LIDOCAINE 1% 20 ML VIAL (10MG/ML) FOR IV START INTRADERMA PRN; +MIDAZOLAM 2 MG/2 ML VIAL IV PRN; +ONDANSETRON 4 MG/2 ML VIAL IVP ONE; -Pre Op ABX Message 1 EACH MISC MISCELLANE ONE; +SCOPOLAMINE 1.5MG/72HR PATCH TRANSDERM ONE
[2019-06-22 07:03] VITALS: TEMP 97.2
[2019-06-22 07:06] LABS: Glucose,Whole Blood 126 mg/dL (75-99)
[2019-06-22] MEDS ORDERED: KETAMINE 10 MG/ML 20 ML VIAL ONE (07:26)
[2019-06-22] MEDS ORDERED: MIDAZOLAM 2 MG/2 ML VIAL ONE (07:26)
[2019-06-22] MEDS ORDERED: fentaNYL (PF) 50 MCG/ML 2 ML AMP ONE (07:26)
[2019-06-22] MEDS ORDERED: BUPIVACAINE (PF) 0.25% 30 ML VIAL SQ ONE (07:30)
--- NOTE | 2019-06-22 08:24 | P.OP ---
Date of Procedure: 06/22/19 Preoperative Diagnosis: 1. Nonhealing ulcer distal aspect 4th right toe Postoperative Diagnosis: same Procedure(s) Performed: Partial right 4th toe amputation Anesthesia: local, other (Sedation) Surgeon: Tani Camilo Law Examiner #1: Kellie Vincent Estimated Blood Loss (ml): 2 IV fluids (ml): 500 Pathology: other (distal toe sent to pathology) Condition: stable Disposition: PACU Indications for Procedure: The patient is a 73-year-old male with multiple medical problems with a long- standing history of problems with both of his feet. He came to see me with a nonhealing open wound and callus over the distal aspect of the right fourth toe. We discussed nonsurgical and surgical treatment. We decided to perform an amputation of the toe. We discussed potential risks and complications which the patient is well aware of having previously undergone surgery. He provided his consent to go forward with surgery. Description of Procedure: The patient is nontender operative holding the correct right foot and fourth toes marked my initials. I reviewed the consent form with the patient and his sister. All their questions were answered. The patient was brought back to the operating room. He was positioned on the OR table where a sedation was given by anesthesia. The right leg was prepped and draped in sterile fashion after a tourniquet was applied the proximal aspect of the right leg. All bony prominences well-padded. A timeout was performed identifying the correct patient, operative extremity, and procedure. The patient's leg was then elevated, exsanguinated with an Esmarch bandage, and the tourniquet was inflated to 250 mmHg. Next I began by outlining fishmouth type incisions over the base of the fourth toe. A digital block was performed using quarter percent Marcaine without epinephrine prior to making incision. Skin incision with a scalpel and dissection was carried down with a knife through the flexor and extensor tendons down to bone. The toes disarticulated at the PIP joint handed off to be sent to pathology. The proximal phalanx was cut in its midshaft and the cut ends were contoured. The wound was thoroughly irrigated and closed in layers. A sterile dressing was applied. The tourniquet was let down. They were taken off. The patient was brought to recovery having tolerated the procedure well.
[2019-06-22 09:55] VITALS: BP 131/73; PULSE 85; RESP 20
== END 2019-06-22 10:19 | disposition home or self-care (01) ==
LOC: OR 06:07
PROVIDERS: ATTEND Orthopaedic Surgery
DX: E11.621 Type 2 diabetes mellitus with foot ulcer (principal); L97.519 Non-pressure chronic ulcer of other part of right foot with unspecified severity; I48.91 Unspecified atrial fibrillation; I10 Essential (primary) hypertension; E78.5 Hyperlipidemia, unspecified; J44.9 Chronic obstructive pulmonary disease, unspecified; Z87.891 Personal history of nicotine dependence; K21.9 Gastro-esophageal reflux disease without esophagitis; E11.42 Type 2 diabetes mellitus with diabetic polyneuropathy; Z79.899 Other long term (current) drug therapy; Z79.01 Long term (current) use of anticoagulants; Z79.82 Long term (current) use of aspirin; F32.9 Major depressive disorder, single episode, unspecified; J30.2 Other seasonal allergic rhinitis; Z85.46 Personal history of malignant neoplasm of prostate; Z98.890 Other specified postprocedural states; M86.8X7 Other osteomyelitis, ankle and foot; F43.10 Post-traumatic stress disorder, unspecified
CPT/HCPCS: 88305; 88311; 28825; J2250; J1100; J0690; J2405; J3010

== ENCOUNTER 2022-10-21 09:06 | Day surgery (SDC) | payer MEDICARE, OTHER ==
[2022-10-19 14:30] VITALS: BMI 32.5
[~2022-10-21 09:06] MED LIST changes: -DEXAMETHASONE SOD PHOSPHATE 10 MG/ML 1 ML VIAL IV ONE; -HYDROmorphone 0.5 MG/0.5 ML SYRINGE IVP PRN; -LIDOCAINE 1% 20 ML VIAL (10MG/ML) FOR IV START INTRADERMA PRN; -MIDAZOLAM 2 MG/2 ML VIAL IV PRN; -ONDANSETRON 4 MG/2 ML VIAL IVP ONE; -SCOPOLAMINE 1.5MG/72HR PATCH TRANSDERM ONE; -ceFAZolin 3 GM in SODIUM CHLORIDE 0.9% 100 ML IVPB ONE
[2022-10-21 09:34] VITALS: RESP 16; TEMP 97.9
[2022-10-21] MEDS ORDERED: LACTATED RINGERS 1,000 ML IV ONE (10:00)
[2022-10-21 10:06] LABS: Glucose,Whole Blood 248 mg/dL (70-110)
[2022-10-21] MEDS ORDERED: PROPOFOL 10 MG/ML 20 ML VIAL IV ONE (10:39)
--- NOTE | 2022-10-21 11:08 | P.PCN ---
Date of Procedure: 10/21/22 Procedure(s) Performed: Brief history: Patient is a pleasant 76-year-old pleasant white male scheduled for an elective upper endoscopy as well as colonoscopy as a part of evaluation of evaluation of GERD and prior history of colon polyps. His last EGD and colonoscopy was 5 years ago Procedure performed: Esophagogastroduodenoscopy with biopsy Colonoscopy Preoperative diagnosis: GERD History of colon polyps Anesthesia: MAC Procedure: After informed consent was obtained from the patient was brought into the endoscopy unit and IV sedation was administered by anesthesia under continuous monitoring. Initially upper endoscopy was done. The Olympus GF 160 video endoscope was inserted inserted into the mouth and esophagus intubated without any difficulty and was gradually advanced into the stomach and duodenum and carefully examined. The bulb and second part of the duodenum appeared normal. The scope was then withdrawn into the stomach adequately insufflated with air and upon careful examination the antrum and body, cardia and fundus appeared normal. The scope was then withdrawn into the esophagus. Hiatal hernia noted. The GE junction was located at 40 cm to the incisors. There was a 5 mm tongue of Mcguire's appearing mucosa just proximal to the GE junction which was biopsie d.. Rest of the esophagus appeared normal. Patient tolerated the procedure well. At this time the patient continued to remain sedation. Initial digital rectal examination was normal. Olympus CF 160 video colonoscope was then inserted into the rectum and gradually advanced to the cecum without any difficulty. Careful examination was performed as the scope was gradually being withdrawn. The prep was good. The cecum, ascending colon, transverse colon, descending colon, sigmoid colon and rectum appeared normal. At her sigmoid diverticulosis. Retroflexion was performed in the rectum and no lesions were noted. Patient tolerated the procedure well. Impression: 1. 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 Colonoscopy revealed scattered sigmoid diverticulosis but no evidence of colorectal neoplasia Recommendations: Findings of this examination were discussed with the patient as well as his family. He was advised to follow with the biopsy results. If the biopsy confirms Mcguire's esophagus he can have a repeat upper endoscopy in 3 years. The meantime he'll continue with omeprazole 20 mg daily and follow antireflux measures.
[2022-10-21 11:54] VITALS: PULSE 85
[2022-10-21] MEDS ORDERED: ENALAPRILAT 1.25 MG/ML 1 ML VIAL IVP ONE (11:55)
[2022-10-21 12:11] VITALS: BP 166/87
== END 2022-10-21 12:19 | disposition home or self-care (01) ==
LOC: ORWHC2ENDO 09:06
PROVIDERS: ATTEND Internal Medicine Gastroenterology
DX: Z12.11 Encounter for screening for malignant neoplasm of colon (principal); K31.A0 Gastric intestinal metaplasia, unspecified; K22.70 Barrett's esophagus without dysplasia; K57.30 Diverticulosis of large intestine without perforation or abscess without bleeding; K21.9 Gastro-esophageal reflux disease without esophagitis; K44.9 Diaphragmatic hernia without obstruction or gangrene; I11.0 Hypertensive heart disease with heart failure; I50.9 Heart failure, unspecified; E78.5 Hyperlipidemia, unspecified; J44.9 Chronic obstructive pulmonary disease, unspecified; Z86.010 Personal history of colon polyps; Z98.890 Other specified postprocedural states; Z79.899 Other long term (current) drug therapy
CPT/HCPCS: 43239; 45378; 88305